=== PATIENT | female | born 1945 | race African-American/Black ===

== ENCOUNTER 2017-05-14 14:19 | Inpatient (IN) ==
[2017-05-14] MEDS ORDERED: ONDANSETRON 4 MG/2 ML VIAL IV STA (15:18)
[2017-05-14] MEDS ORDERED: HYDROmorphone 2 MG/1 ML VIAL IV STA (15:18)
[2017-05-14] MEDS ORDERED: ONDANSETRON 4 MG/2 ML VIAL ONE (15:21)
[2017-05-14] MEDS ORDERED: HYDROmorphone 2 MG/1 ML VIAL ONE (15:22)
[2017-05-14] MEDS ORDERED: DEXTROSE 50% 25 GM/50 ML VIAL IV PRN ×2 (17:06→18:14)
[2017-05-14] MEDS ORDERED: traZODone 50 MG TABLET PO PRN (17:06)
[2017-05-14] MEDS ORDERED: PROMETHAZINE 25 MG/1 ML VIAL IM PRN (17:06)
[2017-05-14] MEDS ORDERED: HYDROmorphone 2 MG/1 ML VIAL IV PRN (17:06)
[2017-05-14] MEDS ORDERED: GLUCAGON 1 MG VIAL IM PRN ×2 (17:06→18:14)
[2017-05-14] MEDS ORDERED: ONDANSETRON 4 MG/2 ML VIAL IV PRN (17:06)
[2017-05-14 17:23] LABS: Basophils % 0.3 % (0.0-0.8); Eosinophils # 0.1 10*3/uL (0.0-0.87); Eosinophils % 0.9 % (0.00-10.9); Hematocrit 39.6 VOL% (35.7-47.0); Hemoglobin 12.1 GM/DL (12.0-16.0); Immature Granulocytes % 0.5 %; Immature Granulocytes Absolute 0.03 #; Lymphocytes # 2.4 10*3/uL (1.4-4.0); Lymphocytes % 37.1 % (21.3-54.2); Mean Corpuscular HGB Conc 30.6 GM/DL (32-36); Mean Corpuscular Hemoglobin 22 PG (27-34); Mean Corpuscular Volume 73.3 FL (87-102); Mean Platelet Volume 11.6 FL (9.6-12.0); Monocytes # 0.3 10*3/uL (0.11-0.8); Monocytes % 5.3 % (1.7-12.7); Neutrophils # 3.6 10*3/uL (1.4-7.4); Neutrophils % 55.9 % (38.7-73.9); Platelet Count 283 T/CUMM (130-400); Red Cell Distribution Width 15.5 % (9.3-17.3); White Blood Count 6.4 T/CUMM (4-12)
[2017-05-14 17:34] LABS: Albumin 3.9 G/DL (3.4-5.0); Bilirubin,Total 0.8 MG/DL (0.2-1.0); Calcium 9.5 MG/DL (8.5-10.1); Osmolality,Calculated 285.8 MOS/KG (273-304); Potassium 3.7 MMOL/L (3.5-5.1); Total Protein 8.5 G/DL (6.4-8.3)
[2017-05-14] MEDS: SODIUM CHLORIDE 0.9% 1,000 ML IV SCH (18:20)
[2017-05-14 18:43] LABS: PT Patient Result 10.7 SECS; Partial Thromboplastin Time 23.8 SECS (0-40)
[2017-05-14] MEDS ORDERED: INFLUENZA VIRUS VACCINE 0.5 ML SYRINGE IM ONE (19:32)
[2017-05-14] MEDS: INSULIN REGULAR 100 UNIT/ML SUBCUT SCH (20:31)
[2017-05-14] MEDS: traMADol 50 MG TABLET PO SCH (20:33)
[2017-05-14] MEDS: ACETAMINOPHEN 325 MG TABLET PO SCH (20:33)
[2017-05-14] MEDS: INSULIN GLARGINE 100 UNIT/ML SUBCUT SCH (20:35)
[2017-05-15 00:49] LABS: Apearance,Urine Slightly Hazy (Clear); Bacteria,Urine Occasional /HPF (Few); Bilirubin,Urine Negative (Negative); Blood, Urine Negative (Negative); Glucose,Urine (UA) >=500 mg/dL (Negative); Hyaline Casts,Urine 1 /LPF (0-3); Ketones,Urine 20 mg/dL (Negative); Mucus,Urine Occasional /LPF (Occasional); Nitrite,Urine Negative (Negative); Protein,Urine Negative; RBC,Urine 1 /HPF (0-4); Squamous Epithelial Cell,Urine Occasional /HPF (0-10); Urine Color Yellow (Yellow); Urine Specific Gravity 1.024 (1.001-1.035); Urine Urobilinogen < 2.0 EU/DL (0.2-1.0); WBC,Urine 6 /HPF (0-6)
[2017-05-15] MEDS: SODIUM CHLORIDE 0.9% 1,000 ML IV SCH ×2 (03:09→18:37)
[2017-05-15 05:56] LABS: Basophils % 0.1 % (0.0-0.8); Eosinophils % 0.5 % (0.00-10.9); Hematocrit 33.3 VOL% (35.7-47.0); Hemoglobin 10.5 GM/DL (12.0-16.0); Immature Granulocytes % 0.1 %; Immature Granulocytes Absolute 0.01 #; Lymphocytes # 2.5 10*3/uL (1.4-4.0); Lymphocytes % 33.6 % (21.3-54.2); Mean Corpuscular HGB Conc 31.5 GM/DL (32-36); Mean Corpuscular Hemoglobin 23 PG (27-34); Mean Corpuscular Volume 71.8 FL (87-102); Mean Platelet Volume 10.9 FL (9.6-12.0); Monocytes # 0.6 10*3/uL (0.11-0.8); Monocytes % 8.1 % (1.7-12.7); Neutrophils # 4.2 10*3/uL (1.4-7.4); Neutrophils % 57.6 % (38.7-73.9); Platelet Count 243 T/CUMM (130-400); Red Blood Count 4.64 MC/CUMM (3.8-5.5); Red Cell Distribution Width 15.4 % (9.3-17.3); White Blood Count 7.4 T/CUMM (4-12)
[2017-05-15] MEDS ORDERED: ceFAZolin 2,000 MG in PREMIX 1 EACH IV ONE (06:00)
[2017-05-15] MEDS: INSULIN REGULAR 100 UNIT/ML SUBCUT SCH ×4 (06:30→21:09)
[2017-05-15 06:32] LABS: Calcium 8.6 MG/DL (8.5-10.1); Osmolality,Calculated 289.4 MOS/KG (273-304); Potassium 3.9 MMOL/L (3.5-5.1)
[2017-05-15] MEDS ORDERED: BACITRACIN OINT 0.9 GM PACK TOP ONE (06:33)
[2017-05-15] MEDS ORDERED: KETOROLAC 15 MG/1 ML VIAL IV PRN (08:25)
[2017-05-15] MEDS ORDERED: HYDROmorphone 2 MG/1 ML VIAL ONE (08:37)
[2017-05-15] MEDS ORDERED: PROPOFOL 200 MG/20 ML VIAL IV ONE (08:37)
[2017-05-15] MEDS ORDERED: ACETAMINOPHEN 1,000 MG/100 ML VIAL IV ONE (08:38)
[2017-05-15] MEDS ORDERED: ONDANSETRON 4 MG/2 ML VIAL ONE (08:38)
[2017-05-15] MEDS ORDERED: fentaNYL 100 MCG/2 ML VIAL ONE (08:38)
[2017-05-15] MEDS: POLYETHYLENE GLYCOL POWDER 17 GM PACK PO SCH (09:00)
[2017-05-15] MEDS: traMADol 50 MG TABLET PO SCH ×3 (09:00→21:09)
[2017-05-15] MEDS: amLODIPine 5 MG TABLET PO SCH (09:00)
[2017-05-15] MEDS: INSULIN ASPART PROTAMINE/ASPART 70/30 100 UNIT/ML SUBCUT SCH (09:00)
[2017-05-15] MEDS: LISINOPRIL/HCTZ 20-12.5 MG TABLET PO SCH (09:00)
[2017-05-15] MEDS: ACETAMINOPHEN 325 MG TABLET PO SCH ×3 (09:00→21:09)
[2017-05-15] MEDS: ceFAZolin 2,000 MG in PREMIX 1 EACH IV SCH ×2 (14:56→21:58)
[2017-05-15] MEDS: INSULIN GLARGINE 100 UNIT/ML SUBCUT SCH (21:09)
[2017-05-16 02:43] LABS: Basophils % 0.1 % (0.0-0.8); Eosinophils # 0.1 10*3/uL (0.0-0.87); Eosinophils % 1.9 % (0.00-10.9); Hematocrit 28.9 VOL% (35.7-47.0); Hemoglobin 8.8 GM/DL (12.0-16.0); Immature Granulocytes % 0.4 %; Immature Granulocytes Absolute 0.03 #; Lymphocytes # 2.4 10*3/uL (1.4-4.0); Lymphocytes % 31.8 % (21.3-54.2); Mean Corpuscular HGB Conc 30.4 GM/DL (32-36); Mean Corpuscular Hemoglobin 23 PG (27-34); Mean Corpuscular Volume 74.7 FL (87-102); Mean Platelet Volume 10.6 FL (9.6-12.0); Monocytes # 0.7 10*3/uL (0.11-0.8); Monocytes % 9.7 % (1.7-12.7); Neutrophils # 4.2 10*3/uL (1.4-7.4); Neutrophils % 56.1 % (38.7-73.9); Platelet Count 182 T/CUMM (130-400); Red Blood Count 3.87 MC/CUMM (3.8-5.5); Red Cell Distribution Width 15.1 % (9.3-17.3); White Blood Count 7.4 T/CUMM (4-12)
[2017-05-16] MEDS: ASPIRIN EC 325 MG TABLET PO SCH (09:09)
[2017-05-16] MEDS: ACETAMINOPHEN 325 MG TABLET PO SCH ×3 (09:09→21:10)
[2017-05-16] MEDS: amLODIPine 5 MG TABLET PO SCH (09:09)
[2017-05-16] MEDS: traMADol 50 MG TABLET PO SCH ×3 (09:09→21:10)
[2017-05-16] MEDS: POLYETHYLENE GLYCOL POWDER 17 GM PACK PO SCH (09:10)
[2017-05-16] MEDS: INSULIN REGULAR 100 UNIT/ML SUBCUT SCH ×4 (09:10→21:11)
[2017-05-16] MEDS: INSULIN ASPART PROTAMINE/ASPART 70/30 100 UNIT/ML SUBCUT SCH (09:11)
[2017-05-16] MEDS: LISINOPRIL/HCTZ 20-12.5 MG TABLET PO SCH (09:16)
[2017-05-16] MEDS: INSULIN GLARGINE 100 UNIT/ML SUBCUT SCH (21:11)
[2017-05-17] MEDS: ASPIRIN EC 325 MG TABLET PO SCH (08:58)
[2017-05-17] MEDS: LISINOPRIL/HCTZ 20-12.5 MG TABLET PO SCH (08:58)
[2017-05-17] MEDS: ACETAMINOPHEN 325 MG TABLET PO SCH ×3 (08:59→20:42)
[2017-05-17] MEDS: traMADol 50 MG TABLET PO SCH ×3 (08:59→20:42)
[2017-05-17] MEDS: amLODIPine 5 MG TABLET PO SCH (08:59)
[2017-05-17] MEDS: INSULIN ASPART PROTAMINE/ASPART 70/30 100 UNIT/ML SUBCUT SCH (09:00)
[2017-05-17] MEDS: INSULIN REGULAR 100 UNIT/ML SUBCUT SCH ×4 (09:00→20:42)
[2017-05-17] MEDS: POLYETHYLENE GLYCOL POWDER 17 GM PACK PO SCH (09:02)
[2017-05-17] MEDS: LEVOFLOXACIN INJ 250 MG in PREMIX 1 EACH IV SCH (18:33)
[2017-05-17] MEDS: INSULIN GLARGINE 100 UNIT/ML SUBCUT SCH (20:42)
[2017-05-17] MEDS: MAGNESIUM HYDROXIDE SUSP 30 ML UDCUP PO PRN (21:04)
[2017-05-18 05:33] LABS: Basophils % 0.4 % (0.0-0.8); Eosinophils # 0.1 10*3/uL (0.0-0.87); Eosinophils % 1.7 % (0.00-10.9); Hematocrit 29.5 VOL% (35.7-47.0); Hemoglobin 9.2 GM/DL (12.0-16.0); Immature Granulocytes % 0.3 %; Immature Granulocytes Absolute 0.02 #; Lymphocytes # 2.8 10*3/uL (1.4-4.0); Mean Corpuscular HGB Conc 31.2 GM/DL (32-36); Mean Corpuscular Hemoglobin 23 PG (27-34); Mean Corpuscular Volume 73.8 FL (87-102); Mean Platelet Volume 11.2 FL (9.6-12.0); Monocytes # 0.5 10*3/uL (0.11-0.8); Monocytes % 6.5 % (1.7-12.7); Neutrophils # 3.7 10*3/uL (1.4-7.4); Neutrophils % 52.1 % (38.7-73.9); Platelet Count 219 T/CUMM (130-400); Red Cell Distribution Width 14.7 % (9.3-17.3); White Blood Count 7.2 T/CUMM (4-12)
[2017-05-18] MEDS: MAGNESIUM HYDROXIDE SUSP 30 ML UDCUP PO PRN (05:58)
[2017-05-18 06:15] LABS: Albumin 2.9 G/DL (3.4-5.0); Bilirubin,Total 0.7 MG/DL (0.2-1.0); Calcium 8.8 MG/DL (8.5-10.1); Osmolality,Calculated 282.4 MOS/KG (273-304); Potassium 3.7 MMOL/L (3.5-5.1); Total Protein 6.8 G/DL (6.4-8.3)
[2017-05-18] MEDS: INSULIN REGULAR 100 UNIT/ML SUBCUT SCH ×4 (10:06→20:20)
[2017-05-18] MEDS: ACETAMINOPHEN 325 MG TABLET PO SCH ×3 (10:07→20:14)
[2017-05-18] MEDS: amLODIPine 5 MG TABLET PO SCH (10:08)
[2017-05-18] MEDS: traMADol 50 MG TABLET PO SCH ×3 (10:08→20:14)
[2017-05-18] MEDS: ASPIRIN EC 325 MG TABLET PO SCH (10:09)
[2017-05-18] MEDS: POLYETHYLENE GLYCOL POWDER 17 GM PACK PO SCH (10:14)
[2017-05-18] MEDS: LISINOPRIL/HCTZ 20-12.5 MG TABLET PO SCH (10:14)
[2017-05-18] MEDS: INSULIN ASPART PROTAMINE/ASPART 70/30 100 UNIT/ML SUBCUT SCH (12:30)
[2017-05-18] MEDS: LEVOFLOXACIN INJ 250 MG in PREMIX 1 EACH IV SCH (17:32)
[2017-05-18] MEDS ORDERED: BISACODYL 10 MG SUPP RECTAL PRN (18:29)
[2017-05-18] MEDS: INSULIN GLARGINE 100 UNIT/ML SUBCUT SCH (20:25)
[2017-05-19] MEDS: MAGNESIUM HYDROXIDE SUSP 30 ML UDCUP PO PRN ×2 (00:32→06:39)
[2017-05-19] MEDS ORDERED: SODIUM PHOSPHATE ENEMA 133 ML BOTTLE RECTAL ONE (08:51)
[2017-05-19] MEDS: INSULIN REGULAR 100 UNIT/ML SUBCUT SCH ×4 (08:58→20:31)
[2017-05-19] MEDS: INSULIN ASPART PROTAMINE/ASPART 70/30 100 UNIT/ML SUBCUT SCH ×2 (08:59→20:30)
[2017-05-19] MEDS: amLODIPine 5 MG TABLET PO SCH (09:00)
[2017-05-19] MEDS: ACETAMINOPHEN 325 MG TABLET PO SCH ×3 (09:00→20:33)
[2017-05-19] MEDS: LISINOPRIL/HCTZ 20-12.5 MG TABLET PO SCH (09:00)
[2017-05-19] MEDS: ASPIRIN EC 325 MG TABLET PO SCH (09:00)
[2017-05-19] MEDS: traMADol 50 MG TABLET PO SCH ×3 (09:00→20:33)
[2017-05-19] MEDS: POLYETHYLENE GLYCOL POWDER 17 GM PACK PO SCH (09:01)
[2017-05-19] MEDS ORDERED: ZINC OXIDE PASTE 113 GM TUBE TOP PRN (14:38)
[2017-05-19] MEDS: LEVOFLOXACIN 250 MG TABLET PO SCH (15:15)
[2017-05-20] MEDS: amLODIPine 5 MG TABLET PO SCH (08:43)
[2017-05-20] MEDS: LISINOPRIL/HCTZ 20-12.5 MG TABLET PO SCH (08:43)
[2017-05-20] MEDS: ASPIRIN EC 325 MG TABLET PO SCH (08:43)
[2017-05-20] MEDS: traMADol 50 MG TABLET PO SCH ×2 (08:44→15:21)
[2017-05-20] MEDS: ACETAMINOPHEN 325 MG TABLET PO SCH ×2 (08:44→15:22)
[2017-05-20] MEDS: INSULIN REGULAR 100 UNIT/ML SUBCUT SCH ×3 (08:45→17:20)
[2017-05-20] MEDS: POLYETHYLENE GLYCOL POWDER 17 GM PACK PO SCH (08:48)
[2017-05-20] MEDS: INSULIN ASPART PROTAMINE/ASPART 70/30 100 UNIT/ML SUBCUT SCH (09:53)
[2017-05-20 11:11] VITALS: BP 139/70
[2017-05-20] MEDS: LEVOFLOXACIN 250 MG TABLET PO SCH (13:29)
== END 2017-05-20 18:25 | DRG 493 ==
LOC: EDUNIT# → EDBD → N.ED 14:19 → N.3E 15:55
PROVIDERS: ADMIT Orthopaedic Surgery; ATTEND Orthopaedic Surgery